=== PATIENT | male | born 1985 | race Caucasian/White ===

== ENCOUNTER 2020-12-01 00:35 | Emergency (ER) | payer OTHER ==
[~2020-12-01 00:35] MED LIST: IBUPROFEN600 MG PO; PERCOCET 5-3251 EACH PO; TESSALON PERLE100 MG PO; ZITHROMAX250 MG PO; ZOFRAN ODT 4 MG4 MG PO; ZYRTEC10 M3 PO
[2020-12-01 01:19] LABS: RED BLOOD COUNT 4.99 M/UL (4.20-5.50); WHITE BLOOD COUNT 14.3 K/UL (4.5-11.0)
[2020-12-01 01:35] LABS: BUN/CREATININE RATIO 23 (0-10)
== END 2020-12-01 06:09 | disposition home or self-care (01) ==
LOC: ER1 00:35
PROVIDERS: Physician Assistant
DX: T38.3X1A Poisoning by insulin and oral hypoglycemic [antidiabetic] drugs, accidental (unintentional), initial encounter (principal); R00.0 Tachycardia, unspecified; E10.649 Type 1 diabetes mellitus with hypoglycemia without coma; Z90.49 Acquired absence of other specified parts of digestive tract; F17.210 Nicotine dependence, cigarettes, uncomplicated; Z88.0 Allergy status to penicillin
CPT/HCPCS: 71045; 80053; 82009; 82962; 84439; 84443; 85025; 93005; 99284; G0480

== ENCOUNTER 2021-01-11 19:27 | Inpatient (IN) | payer OTHER ==
[~2021-01-11] VITALS: Ht 185.4 cm; Wt 116.1 kg
[2021-01-11 21:09] LABS: HEMOGLOBIN 16.2 gm/dl (14.0-17.5); RED BLOOD COUNT 5.22 M/UL (4.20-5.50); WHITE BLOOD COUNT 16.3 K/UL (4.5-11.0)
[2021-01-11 21:15] LABS: BUN/CREATININE RATIO 16 (0-10)
[2021-01-11] MEDS ORDERED: LEVEMIR FL100 UNIT/1 SQ (23:21)
[2021-01-11] MEDS ORDERED: ADMELOG SO100 UNIT/1 SC (23:21)
[2021-01-12 02:26] LABS: BUN/CREATININE RATIO 17 (0-10)
[2021-01-12 05:07] LABS: WHITE BLOOD COUNT 16.3 K/UL (4.5-11.0)
[2021-01-12 05:08] LABS: HEMOGLOBIN 13.4 gm/dl (14.0-17.5); RED BLOOD COUNT 4.41 M/UL (4.20-5.50)
[2021-01-12 05:29] LABS: BUN/CREATININE RATIO 16 (0-10)
[2021-01-12 08:44] LABS: BUN/CREATININE RATIO 15 (0-10)
[2021-01-12 12:29] LABS: BUN/CREATININE RATIO 14 (0-10)
[2021-01-12 16:58] LABS: BUN/CREATININE RATIO 15 (0-10)
--- NOTE | 2021-01-12 19:15 | NUR ---
PATIENT UPSET, HE STATES, HES NOT HAPPY WITH NPO STATUS. I TRIED TO EXPLAIN WITH HIM BEING ON INSULIN DRIP THAT WAS THE DOCTORS ORDER. HE PROCEEDED TO SAY HE KNEW MORE THAN THE DOCTORS ABOUT HIS DIABETES, HE COULD GIVE HIS OWN INSULIN . AND, HE WOULD " RIP HIS EQUIPMENT OFF.AND, WE ( HE AND I ) COULD THROW DOWN ! " HE ALSO STATED HE WANTED TO GO OUTSIDE TO SMOKE. ALL COMPLAINS AND DEMANDS LISTENED TO AND ADDRESSED. LAST ACCU CHECK WAS 109. DR PEREZ WAS NOTIFIED, UPDATE GIVEN. INSULIN DRIP STOPPPED. MEAL PROVIDED. INSULIN COVERAGE STARTED ORDERED.
[2021-01-12 20:15] LABS: BUN/CREATININE RATIO 13 (0-10)
--- NOTE | 2021-01-12 21:00 | NUR ---
RESTING QUIETLY. UP TO BR FOR SHOWER PER REQUEST. MORE PLEASANT THAN PREVIOUSLY. NO FURTHER AT THIS TIME
--- NOTE | 2021-01-13 01:30 | NUR ---
UP AMBULATING. REQUEST ACCU CHECK . STATES HE ," DOESNT FEEL RIGHT" ACCU CHECK 302. HE REQUEST I CALL MD . HE ALSO STATES HE CHECKED HIS OWN BLOOD SUGAR EARLIER AND ADMINISTEED HIS OWN INSULIN . DR BROWN NOTIFIED . ORDER RECEIVED.
[2021-01-13 05:17] LABS: HEMOGLOBIN 13.9 gm/dl (14.0-17.5); RED BLOOD COUNT 4.54 M/UL (4.20-5.50); WHITE BLOOD COUNT 12.6 K/UL (4.5-11.0)
[2021-01-13 05:44] LABS: BUN/CREATININE RATIO 9 (0-10)
[2021-01-13] MEDS ORDERED: MUPIROCIN22 GM TOP (08:29)
[2021-01-13] MEDS ORDERED: DOXYCYCLINE HY100 MG PO (08:29)
== END 2021-01-13 09:21 | disposition home or self-care (01) | DRG 638 ==
LOC: ER1 19:27 → CDU 01-12 00:08 → CCU 01-12 00:08
PROVIDERS: Family Medicine; Internal Medicine; ADMIT Internal Medicine
DX: E10.10 Type 1 diabetes mellitus with ketoacidosis without coma (principal); R65.10 Systemic inflammatory response syndrome (SIRS) of non-infectious origin without acute organ dysfunction; Z20.822 Contact with and (suspected) exposure to COVID-19; E87.6 Hypokalemia; E86.0 Dehydration; Z79.4 Long term (current) use of insulin; Z72.0 Tobacco use; Z90.49 Acquired absence of other specified parts of digestive tract; Z88.0 Allergy status to penicillin; Z88.8 Allergy status to other drugs, medicaments and biological substances; Z82.49 Family history of ischemic heart disease and other diseases of the circulatory system; Z90.89 Acquired absence of other organs
CPT/HCPCS: 36415; 71045; 80048; 80053; 81001; 82009; 82550; 82553; 82803; 82962; 83036; 83605; 83690; 83735; 84100; 84484; 85025; 85027; 86140; 87040; 93005; 96374; 99285; G0480; J1650; J1885; J2405; J2550; J3370; J7030; J7070

== ENCOUNTER 2021-04-26 20:56 | Emergency (ER) | payer OTHER ==
[~2021-04-26 20:56] MED LIST changes: +ADMELOG SO100 UNIT/1 SC; +DOXYCYCLINE HY100 MG PO; +LEVEMIR FL100 UNIT/1 SQ; +MUPIROCIN22 GM TOP
== END 2021-04-26 22:10 | disposition home or self-care (01) ==
LOC: ER1 20:56
DX: R05 Cough (principal); E11.9 Type 2 diabetes mellitus without complications; Z79.4 Long term (current) use of insulin; F17.200 Nicotine dependence, unspecified, uncomplicated; Z20.822 Contact with and (suspected) exposure to COVID-19; Z90.49 Acquired absence of other specified parts of digestive tract
CPT/HCPCS: 99283; U0003

== ENCOUNTER 2021-05-18 03:49 | Emergency (ER) | payer OTHER ==
[2021-05-18 05:14] LABS: HEMOGLOBIN 15.8 gm/dl (14.0-17.5); RED BLOOD COUNT 5.22 M/UL (4.20-5.50); WHITE BLOOD COUNT 10.8 K/UL (4.5-11.0)
[2021-05-18 05:49] LABS: BUN/CREATININE RATIO 17 (0-10)
[2021-05-18] MEDS ORDERED: NAPROSYN500 MG PO (09:12)
[2021-05-18] MEDS ORDERED: CYCLOBENZAPRINE5 MG PO (09:12)
[2021-05-18] MEDS ORDERED: PROAIR HFA8.5 GM INH (09:14)
== END 2021-05-18 09:24 | disposition home or self-care (01) ==
LOC: ER1 03:49
PROVIDERS: Physician Assistant
DX: M48.07 Spinal stenosis, lumbosacral region (principal); M51.37 Other intervertebral disc degeneration, lumbosacral region; J40 Bronchitis, not specified as acute or chronic; E11.649 Type 2 diabetes mellitus with hypoglycemia without coma; F17.210 Nicotine dependence, cigarettes, uncomplicated; Z86.73 Personal history of transient ischemic attack (TIA), and cerebral infarction without residual deficits; Z20.822 Contact with and (suspected) exposure to COVID-19; Z90.49 Acquired absence of other specified parts of digestive tract; Z88.0 Allergy status to penicillin; Z79.4 Long term (current) use of insulin
CPT/HCPCS: 71045; 72129; 72132; 80053; 82962; 83605; 85025; 85652; 86140; 87040; 96374; 96375; 99284; J1885; Q9967; U0003

== ENCOUNTER → 2021-12-26 | Outpatient (CLI) | payer OTHER ==
[~2021-12-26] MED LIST changes: +CYCLOBENZAPRINE5 MG PO; +NAPROSYN500 MG PO; +PROAIR HFA8.5 GM INH
[2021-12-26 16:18] LABS: HEMOGLOBIN 15.6 gm/dl (14.0-17.5); RED BLOOD COUNT 4.85 M/UL (4.20-5.50); WHITE BLOOD COUNT 9.1 K/UL (4.5-11.0)
[2021-12-26 16:43] LABS: BUN/CREATININE RATIO 13 (0-10)
[2021-12-29 11:10] LABS: THYROXINE (T4) 6.3 ug/dL (4.5-12.0)
[2021-12-30 05:10] LABS: VITAMIN D, 25-HYDROXY 30.1 ng/mL (30.0-100.0)
== END ==
LOC: LAB 15:23
PROVIDERS: Nurse Practitioner Family
DX: I10 Essential (primary) hypertension (principal); E10.9 Type 1 diabetes mellitus without complications; E78.5 Hyperlipidemia, unspecified; R53.83 Other fatigue; M25.511 Pain in right shoulder
CPT/HCPCS: 36415; 73030; 73060; 80053; 80061; 81001; 83036; 84436; 84443; 84480; 85025